=== PATIENT | male | born 1955 | race American Indian/Alaskan Native ===

== ENCOUNTER 2016-08-14 18:47 | Emergency (ER) | payer OTHER ==
[2016-08-14 19:01] VITALS: BP 120/80
== END 2016-08-15 03:09 | disposition left against medical advice (07) ==
LOC: ED 18:47
DX: M79.651 Pain in right thigh (principal); M25.561 Pain in right knee; M79.641 Pain in right hand; W01.0XXA Fall on same level from slipping, tripping and stumbling without subsequent striking against object, initial encounter; Y93.89 Activity, other specified; Y92.89 Other specified places as the place of occurrence of the external cause; Y99.8 Other external cause status; Z53.21 Procedure and treatment not carried out due to patient leaving prior to being seen by health care provider

== ENCOUNTER 2020-03-04 00:40 | Emergency (ER) | payer OTHER ==
[2020-03-04 02:10] VITALS: BP 133/78
[2020-03-04] MEDS ORDERED: ACETAMINOPHEN 500 MG TAB PO ONE (03:28)
[2020-03-04] MEDS ORDERED: IBUPROFEN 600 MG TAB PO ONE (03:28)
[2020-03-04] MEDS ORDERED: AMOXICILLIN/K CLAV 875/125MG TAB PO ONE (03:28)
--- NOTE | 2020-03-04 03:28 | Emergency Department Report ---
ED General Adult HPI - General Chief complaint: Dental/Oral Stated complaint: HEADACHE/TOOTHACHE Source: patient Mode of arrival: Ambulatory Limitations: No Limitations - History of Present Illness Initial comments: Patient is a 65-year-old -[place] male with a history of chronic dental abscesses, dental caries, hypertension and bipolar disorder who presents to the ED with complaint of acute exacerbation of his chronic dental pain for the last 2 months, worse in the last 4 days, with headache. Patient states that he has been taking [id number] medications with no relief. Patient states that he is scheduled for dental procedure in about 5 days but could not wait for that day because of worsening pain. Patient denies chest pain, shortness of breath, dizziness, syncope, chest pain, fever, chills, cough, sore throat, nasal and sinus congestion, abdominal pain or dysphagia. MD Complaint: left mandibular premolar and molar toothaches; swollen gums; headache -: Gradual, month(s) (2) Location: mouth Radiation: non-radiation Severity scale (0 -10): 8 Quality: aching, sharp Consistency: constant Improves with: none Worsens with: eating Associated Symptoms: denies other symptoms, headaches. denies: confusion, chest pain, cough, diaphoresis, fever/chills, loss of appetite, malaise, nausea/vomiting, rash, seizure, shortness of breath, syncope, weakness Treatments Prior to Arrival: none - Related Data Previous Rx's Medication Instructions Recorded Last Taken Type Clindamycin [Clindamycin CAP] 300 mg PO Q8HR #60 capsule 03/04/20 Unknown Rx Ketorolac [Toradol] 10 mg PO Q8H PRN #20 tablet 03/04/20 Unknown Rx traMADoL [Ultram] 50 mg PO Q6HR PRN #12 tablet 03/04/20 Unknown Rx Allergies Allergy/AdvReac Type Severity Reaction Status Date / Time No Known Allergies Allergy Unverified 08/14/16 18:54 ED Review of Systems ROS: Stated complaint: HEADACHE/TOOTHACHE Other details as noted in HPI Constitutional: denies: chills, fever Eyes: denies: eye pain, eye discharge, vision change ENT: dental pain, other (Swollen gums diffusely with pain). denies: ear pain, throat pain Respiratory: denies: cough, shortness of breath, wheezing Cardiovascular: denies: chest pain, palpitations Endocrine: no symptoms reported Gastrointestinal: denies: abdominal pain, nausea, diarrhea Genitourinary: denies: urgency, dysuria Musculoskeletal: denies: back pain, joint swelling, arthralgia Skin: denies: rash, lesions Neurological: headache. denies: weakness, paresthesias Psychiatric: denies: anxiety, depression Hematological/Lymphatic: denies: easy bleeding, easy bruising ED Past Medical Hx - Past Medical History Previous Medical History?: Yes Hx Hypertension: Yes Hx Psychiatric Treatment: Yes (Bipolar) - Surgical History Past Surgical History?: No - Social History Smoking Status: Never Smoker Substance Use Type: None - Medications Home Medications: Home Medications Medication Instructions Recorded Confirmed Last Taken Type Clindamycin [Clindamycin CAP] 300 mg PO Q8HR #60 capsule 03/04/20 Unknown Rx Ketorolac [Toradol] 10 mg PO Q8H PRN #20 tablet 03/04/20 Unknown Rx traMADoL [Ultram] 50 mg PO Q6HR PRN #12 tablet 03/04/20 Unknown Rx ED Physical Exam - General Limitations: No Limitations General appearance: alert, in no apparent distress - Head Head exam: Present: atraumatic, normocephalic, normal inspection - Eye Eye exam: Present: normal appearance, PERRL, EOMI Pupils: Present: normal accommodation - ENT ENT exam: Present: mucous membranes moist, TM's normal bilaterally, normal external ear exam, other (Swollen, severely tender gingiva diffusely with multiple dental caries and severely tender left mandibular premolar and molar teeth) - Neck Neck exam: Present: normal inspection, full ROM, lymphadenopathy - Respiratory Respiratory exam: Present: normal lung sounds bilaterally. Absent: respiratory distress, wheezes, rales, rhonchi, chest wall tenderness, accessory muscle use, decreased breath sounds, prolonged expiratory - Cardiovascular Cardiovascular Exam: Present: regular rate, normal rhythm, normal heart sounds. Absent: systolic murmur, diastolic murmur, rubs, gallop - GI/Abdominal GI/Abdominal exam: Present: soft, normal bowel sounds. Absent: tenderness, guarding, rebound, hyperactive bowel sounds, hypoactive bowel sounds, organomegaly - Extremities Exam Extremities exam: Present: normal inspection, full ROM, normal capillary refill - Back Exam Back exam: Present: normal inspection, full ROM. Absent: tenderness, CVA tenderness (R), CVA tenderness (L), muscle spasm, paraspinal tenderness - Neurological Exam Neurological exam: Present: alert, oriented X3, CN II-XII intact, normal gait, reflexes normal - Psychiatric Psychiatric exam: Present: normal affect, normal mood - Skin Skin exam: Present: warm, dry, intact, normal color. Absent: rash ED Course Vital Signs 03/04/20 02:01 Temperature 97.8 F Pulse Rate 67 Respiratory 17 Rate Blood Pressure 133/78 O2 Sat by Pulse 100 Oximetry ED Medical Decision Making - Medical Decision Making This is a 65-year-old -[place] male with a history of chronic dental abscesses, dental caries, hypertension and bipolar disorder who presents to the ED with complaint of acute exacerbation of his chronic dental pain for the last 2 months, worse in the last 4 days, with headache. Patient states that he has been taking [id number] medications with no relief. Patient states that he is scheduled for dental procedure in about 5 days but could not wait for that day because of worsening pain. In the ED, patient is alert and oriented x3 and is not in distress but appears to be in pain. Patient was treated for pain in the ED and also given initial oral antibiotics. Patient was discharged home on pain medications and antibiotics and was advised to follow-up with his dentist as previously scheduled for further evaluation or return to the ED immediately if symptoms get worse. - Differential Diagnosis Gingivitis; dental abscess; dental caries; tension headache; sinusitis; URI Critical care attestation.: If time is entered above; I have spent that time in minutes in the direct care of this critically ill patient, excluding procedure time. ED Disposition Clinical Impression: Dental abscess, Dental caries, Chronic gingivitis Disposition: TO HOME OR SELFCARE Is pt being admited?: No Does the pt Need Aspirin: No Condition: Stable Instructions: Dental Abscess (ED), Gingivitis (ED), Dental Caries (ED) Additional Instructions: Take medication with food, drink plenty of fluids and follow-up with your dentist in 7 to 10 days for reevaluation. Return to the ED immediately if symptoms get worse. Prescriptions: Clindamycin [Clindamycin CAP] 300 mg PO Q8HR #60 capsule Ketorolac [Toradol] 10 mg PO Q8H PRN #20 tablet PRN Reason: Pain traMADoL [Ultram] 50 mg PO Q6HR PRN #12 tablet PRN Reason: Pain Referrals: [facility] [Primary Care Provider] - 3-5 Days [facility] [Outside] - 3-5 Days [facility] [Outside] - 7-10 days Time of Disposition: 03:26 Print Language: ANGOLAN
== END 2020-03-04 03:52 | disposition home or self-care (01) ==
LOC: ED 00:40
DX: K04.7 Periapical abscess without sinus (principal); K02.9 Dental caries, unspecified; K05.10 Chronic gingivitis, plaque induced; I10 Essential (primary) hypertension; F31.9 Bipolar disorder, unspecified; Z79.899 Other long term (current) drug therapy
CPT/HCPCS: 99282